=== PATIENT | male | born 1950 | race Hispanic/Latino ===

== ENCOUNTER 2019-02-12 15:27 | Emergency (ER) | payer MEDICARE ==
[~2019-02-12] VITALS: Ht 165.1 cm; Wt 78.5 kg
--- OUTSIDE RECORDS SUMMARY | 2019-02-12 15:29 | XMS REPORT ---
Author Author [facility] Address Unknown Phone Unavailable Care Team Providers Care Water Systems Engineer Name Role Phone Unavailable Unavailable Payers Payer Name Policy Type Policy Number Effective Date Expiration Date Problems This patient has no known problems. Allergies, Adverse Reactions, Alerts Allergy Name Allergy Type Status Severity Reaction(s) Onset Date Inactive Date Treating Clinician Comments No Known Allergies DA Active U 2015-04-29 00:00:00 Medications This patient has no known medications. Results Test Description Test Time Test Comments Text Results Atomic Results Result Comments GLUBED 2018-11-29 13:07:00 GLUBED (test code=GLUBED) 188 MG/DL 70-110 Performed by certified squeezer operator at [facility] [id number] 09:12:00* Test Item Value Reference Range Comments GLUBED (test code=GLUBED) 138 MG/DL 70-110 Performed by certified squeezer operator at [facility] CBC W/AUTO [id number] 08:34:00* Test Item Value Reference Range Comments WHITE BLOOD CELL (test code=WBC) 6.67 x10 3/uL 4.5-11.0 RED BLOOD CELL (test code=RBC) 3.10 x10 6/uL 4.00-5.60 HEMOGLOBIN (test code=HGB) 10.1 g/dL 12.5-16.9 HEMATOCRIT (test code=HCT) 29.9 % 37.5-50.7 MEAN CELL VOLUME (test code=MCV) 96.5 fL 81.0-99.0 MEAN CELL HGB (test code=MCH) 32.6 pg 27.0-33.0 MEAN CELL HGB CONCETRATION (test code=MCHC) 33.8 g/dL 33.0-37.0 RED CELL DISTRIBUTION WIDTH CV (test code=RDW) 12.0 % 11.5-14.5 RED CELL DISTRIBUTION WIDTH SD (test code=RDW-SD) 41.9 fL 37.0-54.0 PLATELET COUNT (test code=PLT) 267 x10 3/uL 150-400 MEAN PLATELET VOLUME (test code=MPV) 10.4 fL 7.0-9.0 NEUTROPHIL % (test code=NT%) 67.3 % 56.0-77.0 IMMATURE GRANULOCYTE % (test code=IG%) 0.3 % 0.0-2.0 LYMPHOCYTE % (test code=LY%) 15.7 % 14.0-32.0 MONOCYTE % (test code=MO%) 14.4 % 4.8-9.0 EOSINOPHIL % (test code=EO%) 1.9 % 0.3-3.7 BASOPHIL % (test code=BA%) 0.4 % 0.0-2.0 NUCLEATED RBC % (test code=NRBC%) 0.0 % 0-0 NEUTROPHIL # (test code=NT#) 4.48 x10 3/uL 2.0-7.6 IMMATURE GRANULOCYTE # (test code=IG#) 0.02 x10 3/uL 0.00-0.03 LYMPHOCYTE # (test code=LY#) 1.05 x10 3/uL 1.0-3.8 MONOCYTE # (test code=MO#) 0.96 x10 3/uL 0.1-0.8 EOSINOPHIL # (test code=EO#) 0.13 x10 3/uL 0.0-0.2 BASOPHIL # (test code=BA#) 0.03 x10 3/uL 0.0-0.2 NUCLEATED RBC # (test code=NRBC#) 0.00 x10 3/uL 0.0-0.1 MANUAL DIFF REQUIRED (test code=MDIFF) NO BASIC METABOLIC [id number] 08:31:00* Test Item Value Reference Range Comments SODIUM (test code=NA) 135 mEq/L 134-147 POTASSIUM (test code=K) 4.0 mEq/L 3.4-5.0 CHLORIDE (test code=CL) 102 mEq/L 100-108 CARBON DIOXIDE (test code=CO2) 27 mEq/L 21-33 ANION GAP (test code=GAP) 10 0-20 GLUCOSE (test code=GLU) 118 mg/dL 70-110 BLOOD UREA NITROGEN (test code=BUN) 34 mg/dL 7-18 GLOMERULAR FILTRATION RATE (test code=GFR) 50.1 70-80 Units of measure=ml/min/1.73 m2 CREATININE (test code=CREAT) 1.4 mg/dL 0.6-1.3 CALCIUM (test code=CA) 8.3 mg/dL 8.0-10.5 [id number] 08:31:00* Test Item Value Reference Range Comments PHOSPHOROUS (test code=PHOS) 3.4 MG/DL 2.5-4.9 [id number] 08:31:00* Test Item Value Reference Range Comments MAGNESIUM (test code=MAG) 2.60 mg/dL 1.8-2.4 [id number] 05:29:00* Test Item Value Reference Range Comments GLUBED (test code=GLUBED) 218 MG/DL 70-110 Performed by certified squeezer operator at [facility] [id number] 21:56:00* Test Item Value Reference Range Comments GLUBED (test code=GLUBED) 129 MG/DL 70-110 Performed by certified squeezer operator at [facility] [id number] 17:59:00* Test Item Value Reference Range Comments GLUBED (test code=GLUBED) 151 MG/DL 70-110 Performed by certified squeezer operator at [facility] [id number] 07:38:00* Test Item Value Reference Range Comments GLUBED (test code=GLUBED) 165 MG/DL 70-110 Performed by certified squeezer operator at [facility] - XR CHEST 1 [id number] 07:34:00 FAX: Kayden Martinez MD [phone] [place]: St: [facility] FAX: Murphy Wilkerson MD [phone] Name: LINSEY MOSCOSO [facility] : 1950 Age/S: 68/M [address] [place] [address] Unit #: [id number] Loc: [place] [address] Phys: Murphy Fang MD Acct: [id number] Dis Date: Status: ADM IN PHONE #: [phone] Exam Date: 11/28/2018556 FAX #: [phone] Reason: RIB FRACTURES EXAMS: CPT CODE: [id number] XR CHEST 1 V 28001 Patient: LINSEY MOSCOSO. : 1950; Age: 68 years; Gender: Male. MR: [id number]. Ordering physician: Murphy Fang MD. PORTABLE CHEST AP: HISTORY: Rib fractures. COMPARISON: Chest x-ray 11/26/2018. IMPRESSION: Portable frontal view of the chest was obtained. Lung volumes are low accentuating lung markings. Minimal bilateral atelectasis noted. No infi ltrate, pleural effusion or pneumothorax. The cardiomediastinal silhouet te and pulmonary vasculature are stable. SL: [id number] at 0734 Reported and signed by: Dereje Doyle M.D. CC: aKyden Paredes MD; Murphy Fang Technologist: Charan Dove, RT(R); Tory Larsen RT(R) Trnscrd Date/Time/By: 11/28/2018 (0734) : By: [id number] Orig Print D/T: S: 11/28/2018 (0738) PAGE 1 Signed Report COMPREHENSIVE METABOLIC [id number] 06:26:00* Test Item Value Reference Range Comments SODIUM (test code=NA) 131 mEq/L 134-147 POTASSIUM (test code=K) 4.0 mEq/L 3.4-5.0 CHLORIDE (test code=CL) 97 mEq/L 100-108 CARBON DIOXIDE (test code=CO2) 29 mEq/L 21-33 ANION GAP (test code=GAP) 9 0-20 GLUCOSE (test code=GLU) 135 mg/dL 70-110 BLOOD UREA NITROGEN (test code=BUN) 37 mg/dL 7-18 GLOMERULAR FILTRATION RATE (test code=GFR) 37.5 70-80 Units of measure=ml/min/1.73 m2 CREATININE (test code=CREAT) 1.8 mg/dL 0.6-1.3 TOTAL PROTEIN (test code=PROT) 5.9 g/dL 6.4-8.2 ALBUMIN (test code=ALB) 2.30 g/dL 3.4-5.0 CALCIUM (test code=CA) 8.2 mg/dL 8.0-10.5 BILIRUBIN TOTAL (test code=BILT) 0.6 MG/DL <1.5 SGOT/AST (test code=AST) 18 IUnit/L 15-37 SGPT/ALT (test code=ALT) 59 IUnit/L 15-65 ALKALINE PHOSPHATASE TOTAL (test code=ALKP) 90 IUnit/L 20-125 [id number] 06:26:00* Test Item Value Reference Range Comments PHOSPHOROUS (test code=PHOS) 3.0 MG/DL 2.5-4.9 [id number] 06:26:00* Test Item Value Reference Range Comments MAGNESIUM (test code=MAG) 2.90 mg/dL 1.8-2.4 CBC W/AUTO [id number] 05:45:00* Test Item Value Reference Range Comments WHITE BLOOD CELL (test code=WBC) 7.90 x10 3/uL 4.5-11.0 RED BLOOD CELL (test code=RBC) 3.23 x10 6/uL 4.00-5.60 HEMOGLOBIN (test code=HGB) 10.5 g/dL 12.5-16.9 HEMATOCRIT (test code=HCT) 30.4 % 37.5-50.7 MEAN CELL VOLUME (test code=MCV) 94.1 fL 81.0-99.0 MEAN CELL HGB (test code=MCH) 32.5 pg 27.0-33.0 MEAN CELL HGB CONCETRATION (test code=MCHC) 34.5 g/dL 33.0-37.0 RED CELL DISTRIBUTION WIDTH CV (test code=RDW) 11.7 % 11.5-14.5 RED CELL DISTRIBUTION WIDTH SD (test code=RDW-SD) 40.5 fL 37.0-54.0 PLATELET COUNT (test code=PLT) 246 x10 3/uL 150-400 MEAN PLATELET VOLUME (test code=MPV) 10.5 fL 7.0-9.0 NEUTROPHIL % (test code=NT%) 75.6 % 56.0-77.0 IMMATURE GRANULOCYTE % (test code=IG%) 0.4 % 0.0-2.0 LYMPHOCYTE % (test code=LY%) 11.0 % 14.0-32.0 MONOCYTE % (test code=MO%) 12.0 % 4.8-9.0 EOSINOPHIL % (test code=EO%) 0.9 % 0.3-3.7 BASOPHIL % (test code=BA%) 0.1 % 0.0-2.0 NUCLEATED RBC % (test code=NRBC%) 0.0 % 0-0 NEUTROPHIL # (test code=NT#) 5.97 x10 3/uL 2.0-7.6 IMMATURE GRANULOCYTE # (test code=IG#) 0.03 x10 3/uL 0.00-0.03 LYMPHOCYTE # (test code=LY#) 0.87 x10 3/uL 1.0-3.8 MONOCYTE # (test code=MO#) 0.95 x10 3/uL 0.1-0.8 EOSINOPHIL # (test code=EO#) 0.07 x10 3/uL 0.0-0.2 BASOPHIL # (test code=BA#) 0.01 x10 3/uL 0.0-0.2 NUCLEATED RBC # (test code=NRBC#) 0.00 x10 3/uL 0.0-0.1 MANUAL DIFF REQUIRED (test code=MDIFF) NO - US RETROPERITONEAL [id number] 23:06:00 Name: LINSEY MOSCOSO [facility] : 1950 Age/S: 68 / M [address] [place] [address] Unit #: [id number] Loc: [place] [address] Phys: Murphy Fang MD Acct: [id number] Dis Date: Status: ADM IN PHONE #: [phone] Exam Date: 11/27/2018 1702 FAX #: [phone] Reason: RENAL INSUFFICIENCY EXAMS: CPT CODE: [id number] US RETROPERITONEAL COM [id number] PROCEDURE: RENAL ULTRASOUND INDICATION: Renal insufficiency COMPARISON: CT chest 11/23/2018, renal ultrasound April 2010 TECHNIQUE: Sonographic evaluation of the kidneys and urinary bladder was performed. LIMITATIONS: Assessment is noted to be limited secondary to patient body habitus and inability to tolerate positioning given rib fractures. FINDINGS: KIDNEYS: The right kidney measures 10.7 cm in length. Visualization is suboptimal. Slight lobulated renal contours. Grossly normal cortical thickness and echogenicity. No hydronep hrosis, mass lesion or perinephric fluid collection. Parapelvic cysts by CT are not well demonstrated on this exam. The left kidney measure s 10.4 cm in length. Visualization is suboptimal. Normal contours. Gross ly normal cortical thickness and echogenicity. Parapelvic cysts in the re nal sinus extending into the renal hilum. No gross hydronephrosis. No nephrolithiasis or perinephric fluid collection. BLADDER: Part ially contracted, otherwise unremarkable. VASCULATURE: Obscured an d unable to be evaluated. IMPRESSION: 1. Limited renal ultrasound without definite hydronephrosis. 2. Parapelvic cysts, notab ly in the left kidney are better demonstrated on recent CT chest. Sensi tivity for hydronephrosis is limited in this setting. If there is clini stella concern for urinary obstruction, further imaging options would inclu de nuclear medicine renal scan. SL: -H PAGE 1 Signed Report (CONTINUED) Name: LINSEY MOSCOSO [facility] : 1950 Age/S: 68 / M [address] [place] [address] Unit #: [id number] Loc: [place] [address] Phys: Yong Fang MD Acct: [id number] Di s Date: Status: ADM IN PHONE #: Exam Date: 11/27/2018 1703 FAX #: Reason: RENAL INSUFFICIENCY EXAMS: CPT CODE: [id number] US RETROPERIT SOUZA COM [id number] <Continued> at 2306 Reported and signed by: Hilario Arnold M.D. CC: Kayden Paredes MD; Murphy Fang Technologist: Aundrea Mcclellan RDMS(OB)(AB) Trnscb Date/Time: 11/27/2018 (5091) jason FORD Orig Print D/T: S: 11/27/2018 (5483) Probe: PAGE 2 Signed Report [id number] 20:30:00* Test Item Value Reference Range Comments GLUBED (test code=GLUBED) 168 MG/DL 70-110 Performed by certified squeezer operator at [facility] BASIC METABOLIC [id number] 19:30:00* Test Item Value Reference Range Comments SODIUM (test code=NA) 127 mEq/L 134-147 POTASSIUM (test code=K) 4.5 mEq/L 3.4-5.0 CHLORIDE (test code=CL) 93 mEq/L 100-108 CARBON DIOXIDE (test code=CO2) 29 mEq/L 21-33 ANION GAP (test code=GAP) 10 0-20 GLUCOSE (test code=GLU) 179 mg/dL 70-110 BLOOD UREA NITROGEN (test code=BUN) 40 mg/dL 7-18 GLOMERULAR FILTRATION RATE (test code=GFR) 31.4 70-80 Units of measure=ml/min/1.73 m2 CREATININE (test code=CREAT) 2.1 mg/dL 0.6-1.3 CALCIUM (test code=CA) 8.4 mg/dL 8.0-10.5 [id number] 17:14:00* Test Item Value Reference Range Comments GLUBED (test code=GLUBED) 192 MG/DL 70-110 Performed by certified squeezer operator at [facility] URINALYSIS [id number] 14:04:00* Test Item Value Reference Range Comments UA COLOR (test code=COLU) YELLOW YEL/STRAW UA APPEARANCE (test code=APPU) SL CLOUDY CLEAR UA GLUCOSE DIPSTICK (test code=DGLUU) NEGATIVE NEGATIVE UA BILIRUBIN DIPSTICK (test code=BILU) NEGATIVE NEGATIVE UA KETONE DIPSTICK (test code=KETU) NEGATIVE NEGATIVE UA SPECIFIC GRAVITY (test code=SGU) 1.011 1.005-1.030 UA BLOOD DIPSTICK (test code=SOFI) 3+ NEGATIVE UA PH DIPSTICK (test code=SIMBA) 5.0 5.0-7.0 UA PROTEIN DIPSTICK (test code=PROU) NEGATIVE NEGATIVE UA UROBILINIOGEN DIPSTICK (test code=URO) 0.2 mg/dL 0.2-1.0 UA NITRITE DIPSTICK (test code=DAMIAN) NEGATIVE NEGATIVE UA LEUKOCYTE ESTERASE DIPSTICK (test code=LEUU) NEGATIVE NEGATIVE UA RBC (test code=RBCU) 21-50 RBC/HPF 0-3 UA WBC NO REFLEX (test code=WBCUCL) 4-9 WBC/HPF 0-3 UA BACTERIA (test code=BACU) TRACE /HPF NONE SEEN UA SQUAMOUS CELLS (test code=SQU) 0-5 /HPF NONE SEEN UA MUCUS (test code=MUCU) TRACE /LPF NONE SEEN UA YEAST (BUDDING) (test code=YEASTUBD) TRACE /HPF NONE UR SODIUM [id number] 14:04:00* Test Item Value Reference Range Comments UR SODIUM RANDOM (test code=CRISTIANE) 15 MEQ/L The Reference Range and Method Performance specificationshave not been established for this fluid. The test resultshould be correlated into the clinical context forinterpretation. UR POTASSIUM RANDOM (test code=KU) 18.6 MEQ/L The Reference Range and Method Performance specificationshave not been established for this fluid. The test resultshould be correlated into the clinical context forinterpretation. UR PROTEIN [id number] 14:04:00* Test Item Value Reference Range Comments UR PROTEIN RANDOM (test code=PROTU) 49 mg/dL Note: Change in UNITS of MEASUREMENT. The Reference Range and Method Performance specificationshave not been established for this fluid. The test resultshould be correlated into the clinical context forinterpretation. UR CREATININE [id number] 14:04:00* Test Item Value Reference Range Comments UR CREATININE RANDOM (test code=CREATU) 99.2 mg/dL The Reference Range and Method Performance specificationshave not been established for this fluid. The test resultshould be correlated into the clinical context forinterpretation. UR OSMOLALITY [id number] 14:04:00* Test Item Value Reference Range Comments UR OSMOLALITY RANDOM (test code=OSMOU) 289 MOS/KG 390-1090 URINALYSIS [id number] 14:00:00* Test Item Value Reference Range Comments UA COLOR (test code=COLU) YELLOW YEL/STRAW UA APPEARANCE (test code=APPU) SL CLOUDY CLEAR UA GLUCOSE DIPSTICK (test code=DGLUU) NEGATIVE NEGATIVE UA BILIRUBIN DIPSTICK (test code=BILU) NEGATIVE NEGATIVE UA KETONE DIPSTICK (test code=KETU) NEGATIVE NEGATIVE UA SPECIFIC GRAVITY (test code=SGU) 1.011 1.005-1.030 UA BLOOD DIPSTICK (test code=SOFI) 3+ NEGATIVE UA PH DIPSTICK (test code=SIMBA) 5.0 5.0-7.0 UA PROTEIN DIPSTICK (test code=PROU) NEGATIVE NEGATIVE UA UROBILINIOGEN DIPSTICK (test code=URO) 0.2 mg/dL 0.2-1.0 UA NITRITE DIPSTICK (test code=DAMIAN) NEGATIVE NEGATIVE UA LEUKOCYTE ESTERASE DIPSTICK (test code=LEUU) NEGATIVE NEGATIVE UA RBC (test code=RBCU) 21-50 RBC/HPF 0-3 UA WBC NO REFLEX (test code=WBCUCL) 4-9 WBC/HPF 0-3 UA BACTERIA (test code=BACU) TRACE /HPF NONE SEEN UA SQUAMOUS CELLS (test code=SQU) 0-5 /HPF NONE SEEN UA MUCUS (test code=MUCU) TRACE /LPF NONE SEEN UA YEAST (BUDDING) (test code=YEASTUBD) TRACE /HPF NONE UR SODIUM [id number] 14:00:00* Test Item Value Reference Range Comments UR SODIUM RANDOM (test code=CRISTIANE) 15 MEQ/L The Reference Range and Method Performance specificationshave not been established for this fluid. The test resultshould be correlated into the clinical context forinterpretation. UR POTASSIUM RANDOM (test code=KU) 18.6 MEQ/L The Reference Range and Method Performance specificationshave not been established for this fluid. The test resultshould be correlated into the clinical context forinterpretation. UR PROTEIN [id number] 14:00:00* Test Item Value Reference Range Comments UR PROTEIN RANDOM (test code=PROTU) mg/dL UR CREATININE [id number] 14:00:00* Test Item Value Reference Range Comments UR CREATININE RANDOM (test code=CREATU) mg/dL UR OSMOLALITY [id number] 14:00:00* Test Item Value Reference Range Comments UR OSMOLALITY RANDOM (test code=OSMOU) 289 MOS/KG 390-1090 URINALYSIS [id number] 13:56:00* Test Item Value Reference Range Comments UA COLOR (test code=COLU) YELLOW YEL/STRAW UA APPEARANCE (test code=APPU) SL CLOUDY CLEAR UA GLUCOSE DIPSTICK (test code=DGLUU) NEGATIVE NEGATIVE UA BILIRUBIN DIPSTICK (test code=BILU) NEGATIVE NEGATIVE UA KETONE DIPSTICK (test code=KETU) NEGATIVE NEGATIVE UA SPECIFIC GRAVITY (test code=SGU) 1.011 1.005-1.030 UA BLOOD DIPSTICK (test code=SOFI) 3+ NEGATIVE UA PH DIPSTICK (test code=SIMBA) 5.0 5.0-7.0 UA PROTEIN DIPSTICK (test code=PROU) NEGATIVE NEGATIVE UA UROBILINIOGEN DIPSTICK (test code=URO) 0.2 mg/dL 0.2-1.0 UA NITRITE DIPSTICK (test code=DAMINA) NEGATIVE NEGATIVE UA LEUKOCYTE ESTERASE DIPSTICK (test code=LEUU) NEGATIVE NEGATIVE UA RBC (test code=RBCU) 21-50 RBC/HPF 0-3 UA WBC NO REFLEX (test code=WBCUCL) 4-9 WBC/HPF 0-3 UA BACTERIA (test code=BACU) TRACE /HPF NONE SEEN UA SQUAMOUS CELLS (test code=SQU) 0-5 /HPF NONE SEEN UA MUCUS (test code=MUCU) TRACE /LPF NONE SEEN UA YEAST (BUDDING) (test code=YEASTUBD) TRACE /HPF NONE UR SODIUM [id number] 13:56:00* Test Item Value Reference Range Comments UR SODIUM RANDOM (test code=CRISTIANE) 15 MEQ/L The Reference Range and Method Performance specificationshave not been established for this fluid. The test resultshould be correlated into the clinical context forinterpretation. UR POTASSIUM RANDOM (test code=KU) 18.6 MEQ/L The Reference Range and Method Performance specificationshave not been established for this fluid. The test resultshould be correlated into the clinical context forinterpretation. UR PROTEIN [id number] 13:56:00* Test Item Value Reference Range Comments UR PROTEIN RANDOM (test code=PROTU) mg/dL UR CREATININE [id number] 13:56:00* Test Item Value Reference Range Comments UR CREATININE RANDOM (test code=CREATU) mg/dL UR OSMOLALITY [id number] 13:56:00* Test Item Value Reference Range Comments UR OSMOLALITY RANDOM (test code=OSMOU) MOS/KG 390-1090 URINALYSIS [id number] 13:50:00* Test Item Value Reference Range Comments UA COLOR (test code=COLU) YELLOW YEL/STRAW UA APPEARANCE (test code=APPU) SL CLOUDY CLEAR UA GLUCOSE DIPSTICK (test code=DGLUU) NEGATIVE NEGATIVE UA BILIRUBIN DIPSTICK (test code=BILU) NEGATIVE NEGATIVE UA KETONE DIPSTICK (test code=KETU) NEGATIVE NEGATIVE UA SPECIFIC GRAVITY (test code=SGU) 1.011 1.005-1.030 UA BLOOD DIPSTICK (test code=SOFI) 3+ NEGATIVE UA PH DIPSTICK (test code=SIMBA) 5.0 5.0-7.0 UA PROTEIN DIPSTICK (test code=PROU) NEGATIVE NEGATIVE UA UROBILINIOGEN DIPSTICK (test code=URO) 0.2 mg/dL 0.2-1.0 UA NITRITE DIPSTICK (test code=DAMIAN) NEGATIVE NEGATIVE UA LEUKOCYTE ESTERASE DIPSTICK (test code=LEUU) NEGATIVE NEGATIVE UA RBC (test code=RBCU) 21-50 RBC/HPF 0-3 UA WBC NO REFLEX (test code=WBCUCL) 4-9 WBC/HPF 0-3 UA BACTERIA (test code=BACU) TRACE /HPF NONE SEEN UA SQUAMOUS CELLS (test code=SQU) 0-5 /HPF NONE SEEN UA MUCUS (test code=MUCU) TRACE /LPF NONE SEEN UA YEAST (BUDDING) (test code=YEASTUBD) TRACE /HPF NONE UR SODIUM [id number] 13:50:00* Test Item Value Reference Range Comments UR SODIUM RANDOM (test code=CRISTIANE) MEQ/L UR POTASSIUM RANDOM (test code=KU) MEQ/L UR PROTEIN [id number] 13:50:00* Test Item Value Reference Range Comments UR PROTEIN RANDOM (test code=PROTU) mg/dL UR CREATININE [id number] 13:50:00* Test Item Value Reference Range Comments UR CREATININE RANDOM (test code=CREATU) mg/dL UR OSMOLALITY [id number] 13:50:00* Test Item Value Reference Range Comments UR OSMOLALITY RANDOM (test code=OSMOU) MOS/KG 390-1090 [id number] 11:35:00* Test Item Value Reference Range Comments GLUBED (test code=GLUBED) 210 MG/DL 70-110 Performed by certified squeezer operator at [facility] [id number] 08:50:00* Test Item Value Reference Range Comments GLUBED (test code=GLUBED) 167 MG/DL 70-110 Performed by certified squeezer operator at [facility] BASIC METABOLIC [id number] 06:11:00* Test Item Value Reference Range Comments SODIUM (test code=NA) 126 mEq/L 134-147 POTASSIUM (test code=K) 3.9 mEq/L 3.4-5.0 CHLORIDE (test code=CL) 92 mEq/L 100-108 CARBON DIOXIDE (test code=CO2) 28 mEq/L 21-33 ANION GAP (test code=GAP) 10 0-20 GLUCOSE (test code=GLU) 123 mg/dL 70-110 BLOOD UREA NITROGEN (test code=BUN) 39 mg/dL 7-18 GLOMERULAR FILTRATION RATE (test code=GFR) 29.7 70-80 Units of measure=ml/min/1.73 m2 CREATININE (test code=CREAT) 2.2 mg/dL 0.6-1.3 CALCIUM (test code=CA) 8.3 mg/dL 8.0-10.5 CBC W/AUTO [id number] 05:48:00* Test Item Value Reference Range Comments WHITE BLOOD CELL (test code=WBC) 9.76 x10 3/uL 4.5-11.0 RED BLOOD CELL (test code=RBC) 3.37 x10 6/uL 4.00-5.60 HEMOGLOBIN (test code=HGB) 11.1 g/dL 12.5-16.9 HEMATOCRIT (test code=HCT) 31.3 % 37.5-50.7 MEAN CELL VOLUME (test code=MCV) 92.9 fL 81.0-99.0 MEAN CELL HGB (test code=MCH) 32.9 pg 27.0-33.0 MEAN CELL HGB CONCETRATION (test code=MCHC) 35.5 g/dL 33.0-37.0 RED CELL DISTRIBUTION WIDTH CV (test code=RDW) 11.9 % 11.5-14.5 RED CELL DISTRIBUTION WIDTH SD (test code=RDW-SD) 40.6 fL 37.0-54.0 PLATELET COUNT (test code=PLT) 223 x10 3/uL 150-400 MEAN PLATELET VOLUME (test code=MPV) 11.3 fL 7.0-9.0 NEUTROPHIL % (test code=NT%) 77.6 % 56.0-77.0 IMMATURE GRANULOCYTE % (test code=IG%) 0.3 % 0.0-2.0 LYMPHOCYTE % (test code=LY%) 10.8 % 14.0-32.0 MONOCYTE % (test code=MO%) 10.2 % 4.8-9.0 EOSINOPHIL % (test code=EO%) 0.8 % 0.3-3.7 BASOPHIL % (test code=BA%) 0.3 % 0.0-2.0 NUCLEATED RBC % (test code=NRBC%) 0.0 % 0-0 NEUTROPHIL # (test code=NT#) 7.57 x10 3/uL 2.0-7.6 IMMATURE GRANULOCYTE # (test code=IG#) 0.03 x10 3/uL 0.00-0.03 LYMPHOCYTE # (test code=LY#) 1.05 x10 3/uL 1.0-3.8 MONOCYTE # (test code=MO#) 1.00 x10 3/uL 0.1-0.8 EOSINOPHIL # (test code=EO#) 0.08 x10 3/uL 0.0-0.2 BASOPHIL # (test code=BA#) 0.03 x10 3/uL 0.0-0.2 NUCLEATED RBC # (test code=NRBC#) 0.00 x10 3/uL 0.0-0.1 MANUAL DIFF REQUIRED (test code=MDIFF) NO [id number] 22:12:00* Test Item Value Reference Range Comments GLUBED (test code=GLUBED) 217 MG/DL 70-110 Performed by certified squeezer operator at [facility] [id number] 16:45:00* Test Item Value Reference Range Comments GLUBED (test code=GLUBED) 210 MG/DL 70-110 Performed by certified squeezer operator at [facility] [id number] 12:22:00* Test Item Value Reference Range Comments GLUBED (test code=GLUBED) 214 MG/DL 70-110 Performed by certified squeezer operator at [facility] [id number] 07:52:00* Test Item Value Reference Range Comments GLUBED (test code=GLUBED) 149 MG/DL 70-110 Performed by certified squeezer operator at [facility] - XR CHEST 1 [id number] 07:52:00 FAX: Kayden Martinez MD [phone] [place]: St: ADM FAX: Murphy Wilkerson MD [phone] Name: LINSEY MOSCOSO [facility] : 1950 Age/S: 68/M [address] [place] [address] Unit #: [id number] Loc: G.M306 [place] [address] Phys: Murphy Fagn MD Acct: [id number] Dis Date: Status: ADM IN PHONE #: [phone] Exam Date: 11/26/2018535 FAX #: [phone] Reason: rib fractures EXAMS: CPT CODE: [id number] XR CHEST 1 V 55026 Clinical Indication: Rib fractures. Comparison: 11/25/2018. CT 11/23/2018. Impression: Chest, single view. Cardiomegaly with low lung volumes. Bibasilar atelectasis. Small layering left pleural effusion. Previously noted rib fractures seen better on comparison CT. SL: [id number] at 0752 Reported and signed by: Juan Ramon Rueda M.D. CC: Kayden Paredes MD; Murphy Fang Technologist: RT Micahel(R) Trnscrd Date/Time/By: 11/26/2018 (0752) : By: [email or web address] Orig Print D/T: S: 11/26/2018 (0750) PAGE 1 Signed Report [id number] 07:03:00* Test Item Value Reference Range Comments GLUBED (test code=GLUBED) 196 MG/DL 70-110 Performed by certified squeezer operator at [facility] RENAL FUNCTION [id number] 06:33:00* Test Item Value Reference Range Comments SODIUM (test code=NA) 128 mEq/L 134-147 POTASSIUM (test code=K) 4.0 mEq/L 3.4-5.0 CHLORIDE (test code=CL) 94 mEq/L 100-108 CARBON DIOXIDE (test code=CO2) 28 mEq/L 21-33 ANION GAP (test code=GAP) 10 0-20 GLUCOSE (test code=GLU) 129 mg/dL 70-110 BLOOD UREA NITROGEN (test code=BUN) 25 mg/dL 7-18 GLOMERULAR FILTRATION RATE (test code=GFR) 37.5 70-80 Units of measure=ml/min/1.73 m2 CREATININE (test code=CREAT) 1.8 mg/dL 0.6-1.3 ALBUMIN (test code=ALB) 2.60 g/dL 3.4-5.0 CALCIUM (test code=CA) 8.2 mg/dL 8.0-10.5 PHOSPHOROUS (test code=PHOS) 2.5 MG/DL 2.5-4.9 [id number] 06:33:00* Test Item Value Reference Range Comments MAGNESIUM (test code=MAG) 2.40 mg/dL 1.8-2.4 CBC W/AUTO [id number] 06:25:00* Test Item Value Reference Range Comments WHITE BLOOD CELL (test code=WBC) 12.88 x10 3/uL 4.5-11.0 RED BLOOD CELL (test code=RBC) 3.54 x10 6/uL 4.00-5.60 HEMOGLOBIN (test code=HGB) 11.7 g/dL 12.5-16.9 HEMATOCRIT (test code=HCT) 33.4 % 37.5-50.7 MEAN CELL VOLUME (test code=MCV) 94.4 fL 81.0-99.0 MEAN CELL HGB (test code=MCH) 33.1 pg 27.0-33.0 MEAN CELL HGB CONCETRATION (test code=MCHC) 35.0 g/dL 33.0-37.0 RED CELL DISTRIBUTION WIDTH CV (test code=RDW) 12.2 % 11.5-14.5 RED CELL DISTRIBUTION WIDTH SD (test code=RDW-SD) 42.3 fL 37.0-54.0 PLATELET COUNT (test code=PLT) 206 x10 3/uL 150-400 MEAN PLATELET VOLUME (test code=MPV) 11.0 fL 7.0-9.0 NEUTROPHIL % (test code=NT%) 82.8 % 56.0-77.0 IMMATURE GRANULOCYTE % (test code=IG%) 0.5 % 0.0-2.0 LYMPHOCYTE % (test code=LY%) 7.7 % 14.0-32.0 MONOCYTE % (test code=MO%) 8.5 % 4.8-9.0 EOSINOPHIL % (test code=EO%) 0.3 % 0.3-3.7 BASOPHIL % (test code=BA%) 0.2 % 0.0-2.0 NUCLEATED RBC % (test code=NRBC%) 0.0 % 0-0 NEUTROPHIL # (test code=NT#) 10.66 x10 3/uL 2.0-7.6 IMMATURE GRANULOCYTE # (test code=IG#) 0.07 x10 3/uL 0.00-0.03 LYMPHOCYTE # (test code=LY#) 0.99 x10 3/uL 1.0-3.8 MONOCYTE # (test code=MO#) 1.10 x10 3/uL 0.1-0.8 EOSINOPHIL # (test code=EO#) 0.04 x10 3/uL 0.0-0.2 BASOPHIL # (test code=BA#) 0.02 x10 3/uL 0.0-0.2 NUCLEATED RBC # (test code=NRBC#) 0.00 x10 3/uL 0.0-0.1 MANUAL DIFF REQUIRED (test code=MDIFF) NO [id number] 22:09:00* Test Item Value Reference Range Comments GLUBED (test code=GLUBED) 188 MG/DL 70-110 Performed by certified squeezer operator at [facility] [id number] 20:03:00* Test Item Value Reference Range Comments GLUBED (test code=GLUBED) 157 MG/DL 70-110 Performed by certified squeezer operator at [facility] [id number] 16:36:00* Test Item Value Reference Range Comments GLUTEO (test code=GLUBED) 192 MG/DL 70-110 Performed by certified squeezer operator at [facility] - XR CHEST 1 [id number] 08:52:00 FAX: Kayden Martinez MD [phone] [place]: St: ADM FAX: Murphy Wilkerson MD [phone] Name: LINSEY MOSCOSO [facility] : 1950 Age/S: 68/M [address] [place] [address] Unit #: [id number] Loc: [address] [address] Phys: Murphy Fang MD Acct: [id number] Dis Date: Status: ADM IN PHONE #: [phone] Exam Date: 11/25/2018523 FAX #: [phone] Reason: rib fractures EXAMS: CPT CODE: [id number] XR CHEST 1 V 08065 EXAMINATION: Chest x-ray 1 view 11/25/2018 at 0456 hours. CLINICAL HISTORY: Rib fractures. COMPARISON: Chest x-ray 11/24/2018. FINDINGS: The cardiomediastinal silhouette is stable in appearance. There are increased lung volumes when compared to the prior examination, with minimal bibasilar atelectasis present. There is no evidence of pneumothorax. The known of multiple left-sided rib fractures are again visualized. IMPRESSION: 1. Increased lung volumes when compared to prior examination. 2. Multiple left-sided rib fractures. at 0852 Reported and signed by: Ramila Sepulveda M.D. CC: Kierra Paredes MD; Murphy Fang Technologist: Christina carlson RT(R) Trnscrd Date/Time/By: 11/25/2018 (08 52) : By: Sung Orig Print D/T: S: 11/25/2018 (1288) PAGE 1 Signed Report CBC W/AUTO [id number] 06:09:00* Test Item Value Reference Range Comments WHITE BLOOD CELL (test code=WBC) 11.90 x10 3/uL 4.5-11.0 RED BLOOD CELL (test code=RBC) 4.02 x10 6/uL 4.00-5.60 HEMOGLOBIN (test code=HGB) 13.0 g/dL 12.5-16.9 HEMATOCRIT (test code=HCT) 37.7 % 37.5-50.7 MEAN CELL VOLUME (test code=MCV) 93.8 fL 81.0-99.0 MEAN CELL HGB (test code=MCH) 32.3 pg 27.0-33.0 MEAN CELL HGB CONCETRATION (test code=MCHC) 34.5 g/dL 33.0-37.0 RED CELL DISTRIBUTION WIDTH CV (test code=RDW) 11.9 % 11.5-14.5 RED CELL DISTRIBUTION WIDTH SD (test code=RDW-SD) 41.1 fL 37.0-54.0 PLATELET COUNT (test code=PLT) 230 x10 3/uL 150-400 MEAN PLATELET VOLUME (test code=MPV) 10.4 fL 7.0-9.0 NEUTROPHIL % (test code=NT%) 85.4 % 56.0-77.0 IMMATURE GRANULOCYTE % (test code=IG%) 0.3 % 0.0-2.0 LYMPHOCYTE % (test code=LY%) 6.6 % 14.0-32.0 MONOCYTE % (test code=MO%) 7.4 % 4.8-9.0 EOSINOPHIL % (test code=EO%) 0.1 % 0.3-3.7 BASOPHIL % (test code=BA%) 0.2 % 0.0-2.0 NUCLEATED RBC % (test code=NRBC%) 0.0 % 0-0 NEUTROPHIL # (test code=NT#) 10.16 x10 3/uL 2.0-7.6 IMMATURE GRANULOCYTE # (test code=IG#) 0.04 x10 3/uL 0.00-0.03 LYMPHOCYTE # (test code=LY#) 0.79 x10 3/uL 1.0-3.8 MONOCYTE # (test code=MO#) 0.88 x10 3/uL 0.1-0.8 EOSINOPHIL # (test code=EO#) 0.01 x10 3/uL 0.0-0.2 BASOPHIL # (test code=BA#) 0.02 x10 3/uL 0.0-0.2 NUCLEATED RBC # (test code=NRBC#) 0.00 x10 3/uL 0.0-0.1 MANUAL DIFF REQUIRED (test code=MDIFF) NO RENAL FUNCTION [id number] 06:00:00* Test Item Value Reference Range Comments SODIUM (test code=NA) 131 mEq/L 134-147 POTASSIUM (test code=K) 3.4 mEq/L 3.4-5.0 CHLORIDE (test code=CL) 98 mEq/L 100-108 CARBON DIOXIDE (test code=CO2) 27 mEq/L 21-33 ANION GAP (test code=GAP) 9 0-20 GLUCOSE (test code=GLU) 205 mg/dL 70-110 BLOOD UREA NITROGEN (test code=BUN) 14 mg/dL 7-18 GLOMERULAR FILTRATION RATE (test code=GFR) 95.6 70-80 Units of measure=ml/min/1.73 m2 CREATININE (test code=CREAT) 0.8 mg/dL 0.6-1.3 ALBUMIN (test code=ALB) 3.10 g/dL 3.4-5.0 CALCIUM (test code=CA) 8.4 mg/dL 8.0-10.5 PHOSPHOROUS (test code=PHOS) 3.1 MG/DL 2.5-4.9 [id number] 06:00:00* Test Item Value Reference Range Comments MAGNESIUM (test code=MAG) 1.70 mg/dL 1.8-2.4 [id number] 21:09:00* Test Item Value Reference Range Comments GLUBED (test code=GLUBED) 184 MG/DL 70-110 Performed by certified squeezer operator at [facility] [id number] 17:16:00* Test Item Value Reference Range Comments GLUBED (test code=GLUBED) 145 MG/DL 70-110 Performed by certified squeezer operator at [facility] [id number] 12:28:00* Test Item Value Reference Range Comments GLUBED (test code=GLUBED) 143 MG/DL 70-110 Performed by certified squeezer operator at [facility] [id number] 08:26:00* Test Item Value Reference Range Comments GLUBED (test code=GLUBED) 118 MG/DL 70-110 Performed by certified squeezer operator at [facility] RENAL FUNCTION [id number] 06:05:00* Test Item Value Reference Range Comments SODIUM (test code=NA) 138 mEq/L 134-147 POTASSIUM (test code=K) 3.4 mEq/L 3.4-5.0 CHLORIDE (test code=CL) 104 mEq/L 100-108 CARBON DIOXIDE (test code=CO2) 30 mEq/L 21-33 ANION GAP (test code=GAP) 7 0-20 GLUCOSE (test code=GLU) 132 mg/dL 70-110 BLOOD UREA NITROGEN (test code=BUN) 18 mg/dL 7-18 GLOMERULAR FILTRATION RATE (test code=GFR) 83.4 70-80 Units of measure=ml/min/1.73 m2 CREATININE (test code=CREAT) 0.9 mg/dL 0.6-1.3 ALBUMIN (test code=ALB) 2.90 g/dL 3.4-5.0 CALCIUM (test code=CA) 8.4 mg/dL 8.0-10.5 PHOSPHOROUS (test code=PHOS) 3.4 MG/DL 2.5-4.9 [id number] 06:05:00* Test Item Value Reference Range Comments MAGNESIUM (test code=MAG) 1.80 mg/dL 1.8-2.4 CBC W/AUTO [id number] 05:40:00* Test Item Value Reference Range Comments WHITE BLOOD CELL (test code=WBC) 6.37 x10 3/uL 4.5-11.0 RED BLOOD CELL (test code=RBC) 3.57 x10 6/uL 4.00-5.60 HEMOGLOBIN (test code=HGB) 11.7 g/dL 12.5-16.9 HEMATOCRIT (test code=HCT) 33.8 % 37.5-50.7 MEAN CELL VOLUME (test code=MCV) 94.7 fL 81.0-99.0 MEAN CELL HGB (test code=MCH) 32.8 pg 27.0-33.0 MEAN CELL HGB CONCETRATION (test code=MCHC) 34.6 g/dL 33.0-37.0 RED CELL DISTRIBUTION WIDTH CV (test code=RDW) 12.0 % 11.5-14.5 RED CELL DISTRIBUTION WIDTH SD (test code=RDW-SD) 41.5 fL 37.0-54.0 PLATELET COUNT (test code=PLT) 218 x10 3/uL 150-400 MEAN PLATELET VOLUME (test code=MPV) 10.5 fL 7.0-9.0 NEUTROPHIL % (test code=NT%) 69.9 % 56.0-77.0 IMMATURE GRANULOCYTE % (test code=IG%) 0.2 % 0.0-2.0 LYMPHOCYTE % (test code=LY%) 19.0 % 14.0-32.0 MONOCYTE % (test code=MO%) 8.5 % 4.8-9.0 EOSINOPHIL % (test code=EO%) 1.9 % 0.3-3.7 BASOPHIL % (test code=BA%) 0.5 % 0.0-2.0 NUCLEATED RBC % (test code=NRBC%) 0.0 % 0-0 NEUTROPHIL # (test code=NT#) 4.46 x10 3/uL 2.0-7.6 IMMATURE GRANULOCYTE # (test code=IG#) 0.01 x10 3/uL 0.00-0.03 LYMPHOCYTE # (test code=LY#) 1.21 x10 3/uL 1.0-3.8 MONOCYTE # (test code=MO#) 0.54 x10 3/uL 0.1-0.8 EOSINOPHIL # (test code=EO#) 0.12 x10 3/uL 0.0-0.2 BASOPHIL # (test code=BA#) 0.03 x10 3/uL 0.0-0.2 NUCLEATED RBC # (test code=NRBC#) 0.00 x10 3/uL 0.0-0.1 MANUAL DIFF REQUIRED (test code=MDIFF) NO - XR CHEST 1 [id number] 05:29:00 FAX: Kayden Martinez MD [phone] [place]: St: ADM Name: LINSEY MENDEZ [facility] : [birth year] Age/S: 68/M [address] [place] [address] Unit #: [id number] Loc: [place] [address] Phys: Kayden Paredes MD Acct: [id number] Dis Date: Status: ADM IN PHONE #: [phone] Exam Date: 11/24/2018456 FAX #: [phone] Reason: TRAUMA EXAMS: CPT CODE: [id number] XR CHEST 1 V 65105 EXAM: CR, XR chest one view: 11/24, 0446 hours HISTORY: TRAUMA TECHNIQUE: 1 view of the chest. COMPARISON: 03/07/2015 FINDINGS: Trachea is midline. Heart is normal in size. Pulmonary vascularity is unremarkable. Low lung volumes. There is no airspace consolidation, pleur al effusion or pneumothorax. Osseous structures are stable. IMPRESSION: No acute cardiopulmonary disease seen. SL: [JSYED-H] at 0529 Reported and signed by: Michoacano Langford M.D. CC: Kayden Paredes MD Tech nologist: Isabel Ibrahim, RT(R) Trnscrd Date/Ti me/By: 11/24/2018 (0529) : By: [email or web address] Orig Print D/T: S: 11/24/2018 (0509) PAGE 1 Signed Report PROTHROMBIN [id number] 22:51:00* Test Item Value Reference Range Comments PROTHROMBIN TIME PATIENT (test code=PTP) 11.5 SECONDS 9.3-12.9 INTERNATIONAL NORMAL RATIO (test code=INR) 1.0 0.8-1.2 TARGET INR BY INDICATION Indication INR1. Prophylaxis of venous thrombosis 2.0 - 3.0 (orthopedic surgery), Prophylaxis of venous thrombosis (other than high-risk surgery), Treatment of Deep Vein Thrombosis/Pulmonary Embolism, Prevention of systemic embolism - Tissue heart valves, Acute Myocardial Infarction (to prevent systemic embolism), Valvular heart disease, Atrial Fibrillation, Bileaflet mechanical valve in aortic position.2. Mechanical prosthetic valves (high risk), 2.5 - 3.5 Presence of Lupus Anticoagulant or Antiphospholipid Antibodies, Prevention of systemic embolism - Acute Myocardial Infarction (to prevent recurrent infarct). THROMBOPLASTIN TIME [id number] 22:51:00* Test Item Value Reference Range Comments THROMBOPLASTIN TIME PARTIAL (test code=PTT) 26.7 Seconds 25.0-39.5 Therapeutic Range: 50.4 - 88.3 Seconds Effective 06/29/2018 [id number] 22:50:00* Test Item Value Reference Range Comments ALCOHOL (test code=ALC) < 0.003 G/dL <0.003 Ethyl Alcohol Interpretation: 0.100 gm/dL - Legally Intoxicated 0.300-0.400 gm/dL - Severely Intoxicated >0.400 gm/dL - Potentially LethalResults are for Medical purposes only, and not for Legal orEmployment evaluation purposes. CBC W/AUTO [id number] 22:36:00* Test Item Value Reference Range Comments WHITE BLOOD CELL (test code=WBC) 7.88 x10 3/uL 4.5-11.0 RED BLOOD CELL (test code=RBC) 3.84 x10 6/uL 4.00-5.60 HEMOGLOBIN (test code=HGB) 12.6 g/dL 12.5-16.9 HEMATOCRIT (test code=HCT) 36.7 % 37.5-50.7 MEAN CELL VOLUME (test code=MCV) 95.6 fL 81.0-99.0 MEAN CELL HGB (test code=MCH) 32.8 pg 27.0-33.0 MEAN CELL HGB CONCETRATION (test code=MCHC) 34.3 g/dL 33.0-37.0 RED CELL DISTRIBUTION WIDTH CV (test code=RDW) 12.2 % 11.5-14.5 RED CELL DISTRIBUTION WIDTH SD (test code=RDW-SD) 42.1 fL 37.0-54.0 PLATELET COUNT (test code=PLT) 250 x10 3/uL 150-400 MEAN PLATELET VOLUME (test code=MPV) 11.0 fL 7.0-9.0 NEUTROPHIL % (test code=NT%) 69.6 % 56.0-77.0 IMMATURE GRANULOCYTE % (test code=IG%) 0.5 % 0.0-2.0 LYMPHOCYTE % (test code=LY%) 17.6 % 14.0-32.0 MONOCYTE % (test code=MO%) 7.1 % 4.8-9.0 EOSINOPHIL % (test code=EO%) 4.6 % 0.3-3.7 BASOPHIL % (test code=BA%) 0.6 % 0.0-2.0 NUCLEATED RBC % (test code=NRBC%) 0.0 % 0-0 NEUTROPHIL # (test code=NT#) 5.48 x10 3/uL 2.0-7.6 IMMATURE GRANULOCYTE # (test code=IG#) 0.04 x10 3/uL 0.00-0.03 LYMPHOCYTE # (test code=LY#) 1.39 x10 3/uL 1.0-3.8 MONOCYTE # (test code=MO#) 0.56 x10 3/uL 0.1-0.8 EOSINOPHIL # (test code=EO#) 0.36 x10 3/uL 0.0-0.2 BASOPHIL # (test code=BA#) 0.05 x10 3/uL 0.0-0.2 NUCLEATED RBC # (test code=NRBC#) 0.00 x10 3/uL 0.0-0.1 MANUAL DIFF REQUIRED (test code=MDIFF) NO [id number] 22:25:00* Test Item Value Reference Range Comments GLUBED (test code=GLUBED) 144 MG/DL 70-110 Performed by certified squeezer operator at [facility] - CT CHEST [id number] 20:25:00 Name: LINSEY MOSCOSO [facility] : 1950 Age/S: 68 / M [address] [place] [address] Unit #: [id number] Loc: [place] [address] Phys: Donald Clark MD Acct: [id number] Dis Date: Status: REG ER PHONE #: [phone] Exam Date: 11/23/20181917 FAX #: [phone] Reason: acute injury left chest EXAMS: CPT CODE: [id number] CT CHEST W/CONTRAST 03302 CT CHEST WITH INTRAVENOUS CONTRAST INDICATION: Fall with left rib pain.. TECHNIQUE: 100 mL Isovue-300 iodinated intravenous contrast was administered. CT of the chest was performed with multi planar reconstructions. CT imaging performed at this location utilizes radiation dose optimization technique which includes one or more of the followin) Automated exposure control; 2) Adjustment of the mA and/or kV according to patient's size; 3) Use of iterative reconstruction techniques. DLP (mGy-cm): 447 COMPARISONS: Chest x-ray 03/07/2015 FINDINGS: There are acute traumatic fractures of the left 8th, 9th, 10th, 11th and 12th ribs, displaced up to 6 mm. These are predominantly single part fractures with the exception of the left 9th rib that is 2 part. There are chronic healed left 7th and 8th rib fractures. There is no acute thoracic spine fracture or dislocation. The thyroid reveals no focal les ion. The mediastinum reveals no mass, organized fluid collection o r lymphadenopathy. There is mild cardiomegaly. There is no pericardial effusion. There is a severe burden of atherosclerotic calcifi cation of the coronary arteries. The aorta reveals no aneury sm or acute process. There is no arterial dissection or occlusion. There is mild atherosclerotic vascular calcification of the aorta. There is a small hiatal hernia. The esophagus reveals no wall thickening, mass or dilation. There is mild bronchiectasis. There is opacity in the dependent lungs which is probably atelectasis but could represent mild bilateral lower lobe pulmonary contusions. There is no pneumothorax, pleural effusion or organized pneumonia. There is a 3 mm no nobstructing right renal calculus. There are PAGE 1 Signed Report (CONTINUED) Name: LINSEY MOSCOSO [facility] : 1950 Age/S: 68 / M [address] [place] [address] Unit #: [id number] Loc: [place] [address] Phys: Donald Clark MD Acct: [id number] Dis Date: Status: REG ER PHONE #: [phone] Exam Date: 11/23/20181917 FAX #: [phone] Reason: acute injury left chest EXAMS: CPT CODE: [id number] CT CHEST W/CONTRAST 16035 <Continued> numerous incompletely imaged probable bilateral parapelvic renal cysts. I cannot exclude bilateral hydronephrosis. There is no hemoperitoneum detected. IMPRESSION: 1. There are acute traumatic fractures of the left 8th, 9th, 10th, 11th and 12th ribs, displaced up to 6 mm. These are predominantly single part fractures with the exception of the left 9th rib that is 2- part. 2. There is opacity in the dependent lungs which is probably atelectasis but could represent mild bilateral lower lobe pulmonary contusions. There is no hemothorax or pneumothorax. 3. There is a 3 mm nonobstructing right renal calculus. There are numerous incompletely imaged probable bilateral parapelvic renal cysts. I cannot exclude bilateral hydronephrosis. There is no hemoperitoneum detected. 4. There are additional nonacute findings that are described above. at 2024 Reported and signed by: Alvarez Henderson D.O. CC: Donald Clark MD Technologist:Renee Hebert RT(R)(CT) CTDI: DLP: Trnscb Date/Time: 11/23/2018 (2024) [email or web address] Orig Print D/T: S: 11/23/2018 (2027) PAGE 2 Signed Report - CT C-SPINE W/O [id number] 19:46:00 Name: LINSEY MOSCOSO [facility] : 1950 Age/S: 68 / M [address] [place] [address] Unit #: [id number] Loc: [place] [address] Phys: Donald Clark MD Acct: [id number] Dis Date: Status: REG ER PHONE #: [phone] Exam Date: 11/23/20181917 FAX #: [phone] Reason: NECK PAIN EXAMS: CPT CODE: [id number] CT C-SPINE W/O CONT 56759 CT CERVICAL SPINE WITHOUT CONTRAST INDICATION: Neck pain after a fall. TECHNIQUE: Unenhanced CT of the cervical spine was performed with axial, coronal and sagittal reconstructions. CT imaging performed at this location utilizes radiation dose optimization technique which includes one or more of the followin) Automated exposure control; 2) Adjustment of the mA and/or kV according to patient's size; 3) Use of iterative reconstruction techniques. DLP (mGy-cm): 277 COMPARISONS: None. FINDINGS: There is mucosal thickening of the left maxillary sinus without a fluid level. There is no acute cervical spine fracture or dislocation. There is no cervical spinal canal stenosis although there are mild degenerative disc bulges from C5-C7. There is a 2 mm degenerative anterolisthesis of C7 on T1. There is mild atherosclerotic calcification of the carotid vasculature. There is mild atherosclerotic vascular calcification of the aorta. There is no cervical lymphadenopathy, mass or organized fluid collection. The lung apices reveal no acute process. IMPRESSION: 1. Intact cervical spine. 2. There are additional nonacute findings that are described above. at 194 Reported and signed by: Alvarez Henderson D.O. PAGE 1 Signed Report (CONTINUED) Name: LINSEY MOSCOSO [facility] : 1950 Age/S: 68 / M [address] [place] [address] Blvd Unit #: [id number] Loc: [place] [address] Phys: Donald Clark MD Acct: [id number] Dis Date: Status: REG ER PHONE #: [phone] Exam Date: 11/23/20181917 FAX #: [phone] Reason: NECK PAIN EXAMS: CPT CODE: [id number] CT C-SPINE W/O CONT 63892 <Continued> CC: Donald Clark MD Technologist:Renee Hebert, RT(R)(CT) CTDI: DLP: Trnscb Date/Time: 11/23/2018 (1945) [email or web address] Orig Print D/T: S: 11/23/2018 (1950) PAGE 2 Signed Report CHEMISTRY 8 [id number] 18:47:00* Test Item Value Reference Range Comments ISTAT-SODIUM (test code=NAP) MMOL/L 134-147 ISTAT-POTASSIUM (test code=KP) MMOL/L 3.4-5.0 ISTAT-CHLORIDE (test code=CLP) MMOL/L 100-108 ISTAT CARBON DIOXIDE (test code=ISTAT-CO2) mmol/L 21-33 ISTAT CALCIUM IONIZED (test code=ISTAT-NACHO) MG/DL 1.12-1.32 ISTAT-GLUCOSE (test code=GLUP) MG/DL 70-110 ISTAT-BUN (test code=BUNP) MG/DL 7-18 BEDSIDE CREATININE (test code=CREATBED) MG/DL 0.6-1.3 GLOMERULAR FILTRATION RATE POC (test code=GFRBED) 64 ML/MIN CHEMISTRY 8 [id number] 18:47:00* Test Item Value Reference Range Comments ISTAT-SODIUM (test code=NAP) 139 MMOL/L 134-147 ISTAT-POTASSIUM (test code=KP) 3.6 MMOL/L 3.4-5.0 ISTAT-CHLORIDE (test code=CLP) 102 MMOL/L 100-108 Performed by certified squeezer operator at [facility] ISTAT CARBON DIOXIDE (test code=ISTAT-CO2) 25.0 mmol/L 21-33 ISTAT CALCIUM IONIZED (test code=ISTAT-NACHO) 1.24 MG/DL 1.12-1.32 ISTAT-GLUCOSE (test code=GLUP) 142 MG/DL 70-110 ISTAT-BUN (test code=BUNP) 20 MG/DL 7-18 BEDSIDE CREATININE (test code=CREATBED) 1.2 MG/DL 0.6-1.3 GLOMERULAR FILTRATION RATE POC (test code=GFRBED) 64 ML/MIN
--- OUTSIDE RECORDS SUMMARY | 2019-02-12 15:30 | XMS REPORT | Summary of Care ---
Author Author SAILAJA Steve, GLENDY Organization Unknown Address Unknown Phone Unavailable Care Team Providers Care Drophammer Operator Name Role Phone AMBAR SEALS M.D. Unavailable Unavailable KERA CRUZ MD Unavailable Unavailable Unavailable Unavailable Functional Status Name Dates Details Functional status health issues are not documented Status: Name Dates Details Cognitive status health issues are not documented Status: Problems Name Dates Details Intracranial arteriosclerosis (437.0, I67.2) Status: Active Medications Name Dates Details Baby Aspirin 81 MG CHEW Active MetFORMIN HCl ER 500 MG Oral Tablet Extended Release 24 Hour * Refills: 0 Active Carvedilol 12.5 MG Oral Tablet * Refills: 0 Active Lisinopril 20 MG Oral Tablet * Refills: 0 Active HydroCHLOROthiazide 25 MG Oral Tablet * Refills: 0 Active Pravastatin Sodium 20 MG Oral Tablet * Refills: 0 Active Oxybutynin Chloride ER 10 MG Oral Tablet Extended Release 24 Hour * Refills: 0 Active NIFEdipine 60 MG TBCR * Refills: 0 Active Doxazosin Mesylate 4 MG Oral Tablet * Refills: 0 Active Plavix 75 MG Oral Tablet * Refills: 0 Active Spironolactone 25 MG Oral Tablet * Refills: 0 Active Gabapentin 600 MG Tab (OR) - 61185_Deactivated * Refills: 0 Active Allergies and Adverse Reactions Name Dates Details No Known Allergies (Allergy) Status: Active Procedures Procedure Dates Details Procedures not documented Immunization Name Dates Details Immunizations not documented Social History Name Dates Details - Status: Name Dates Details Former smoker Vital Signs Date Test Result Details 21-Dec-20179:37 BP Systolic 121 mm[Hg] Status: BP Diastolic 71 mm[Hg] Status: Height 66 in Status: Weight 173 lb Status: Body Mass Index Calculated 27.92 kg/m2 Status: Body Surface Area Calculated 1.88 m2 Status: Results Date Description Value Details Results not documented Plan of Care Name Dates Details Planned Observations Planned Goals not documented Interventions Provided Plan* The management of his intracranial disease is not within the scope of my practice however I doubt that these lesions will need intervention at this time. He should be referred to an interventional neuroradiologist for further recommendations. Instructions Name Dates Details Instructions not documented Encounters Appointment; AMBAR SEALS M.D. Encounter Diagnosis: Problem not documented On: 21-Dec-2017 9:30
[2019-02-12] MEDS ORDERED: LEVOFLOXACIN 500MG/D5W 100ML 100 ML IV ONE ×2 (16:45→17:00)
--- NOTE | 2019-02-12 16:50 | NUR ---
post void residual is 60cc of urine and pt is not having retention, s/s of urinary tract infection and not retention.
[2019-02-12] MEDS ORDERED: POTASSIUM CHLORIDE 20 MEQ TAB CR PO STA (16:58)
[2019-02-12] MEDS ORDERED: POTASSIUM CHLORIDE 20 MEQ TAB CR PO ONE (17:23)
[2019-02-12 17:52] VITALS: BP 170/97
== END 2019-02-12 18:35 | disposition home or self-care (01) ==
LOC: FSED 15:27
DX: R30.0 Dysuria (principal); N30.91 Cystitis, unspecified with hematuria; E87.6 Hypokalemia; K52.9 Noninfective gastroenteritis and colitis, unspecified; I10 Essential (primary) hypertension; E11.9 Type 2 diabetes mellitus without complications; I69.354 Hemiplegia and hemiparesis following cerebral infarction affecting left non-dominant side
CPT/HCPCS: 51700; 80048; 80076; 81003; 83605; 85025; 87040; 87086; 87186; 99284; J1956